=== PATIENT | male | born 1955 | race Caucasian/White ===

== ENCOUNTER 2024-10-03 14:43 | Emergency (ER) | payer MEDICARE ==
[~2024-10-03] VITALS: Ht 177.8 cm; Wt 95.4 kg
[2024-10-03 16:59] VITALS: BP 128/89; PULSE 78; RESP 15; TEMP 97.9; O2SAT 99
== END 2024-10-03 17:00 | disposition home or self-care (01) ==
LOC: ER 14:44
DX: S43.492A Other sprain of left shoulder joint, initial encounter (principal); S50.812A Abrasion of left forearm, initial encounter; S50.811A Abrasion of right forearm, initial encounter; W10.9XXA Fall (on) (from) unspecified stairs and steps, initial encounter; Y93.89 Activity, other specified; Y92.89 Other specified places as the place of occurrence of the external cause; Y99.8 Other external cause status
CPT/HCPCS: 73030; 99284